=== PATIENT | male | born 1990 | race Caucasian/White ===

== ENCOUNTER 2018-03-21 01:19 | Emergency (ER) | payer OTHER, SELFPAY ==
--- NOTE | 2018-03-21 01:28 | DI.CT.S_ITS ---
PROCEDURE: CT KIDNEY URETER BLADDER (KUB) INDICATIONS: severe Right flank pain TECHNIQUE: Noncontrast 5 mm thick sections acquired from the diaphragms to the symphysis. 5 mm thick coronal and sagittal reformats were then performed. For radiation dose reduction, the following was used: automated exposure control, adjustment of mA and/or kV according to patient size. COMPARISON: None. FINDINGS: Image quality: Excellent. Lung bases: Lung bases are clear. Heart size is normal. Urinary system: No left sided urolithiasis or evidence of urinary obstruction. Mildly obstructive 3 mm mid right ureteral calculus image 45 series 2. There is mild right hydronephrosis. No perinephric stranding. No bladder calculus identified. Other solid organs: Liver is normal in size. Gallbladder negative. Pancreas is normal in contours. Spleen is normal in size. No adrenal nodules. However, there is prominent right adrenal calcification presumably from chronic hemorrhage or granulomatous disease. Peritoneum and bowel: Unenhanced bowel loops demonstrate normal wall thickness and caliber. No free fluid or air. The appendix is normal Nodes and vessels: No retroperitoneal or mesenteric adenopathy by size criteria. Aorta and inferior vena cava are normal in caliber. Abdominal wall: No ventral hernias. Pelvis: No free pelvic fluid. No inguinal hernias or adenopathy. Bones: No suspicious bony lesions. No vertebral body compression fractures. IMPRESSION: Mildly obstructive 3 mm right ureteral calculus as above. Dictated by: Darrel Meraz M.D. on 03/21/2018 at 8:36 Approved by: Darrel Meraz M.D. on 03/21/2018 at 8:40
[2018-03-21 01:30] VITALS: BP 130/87; PULSE 74; RESP 16; TEMP 36.4; O2SAT 100; BMI 29.0
--- NOTE | 2018-03-21 02:06 | ED.MALEGU ---
HPI - Male Genitourinary General Chief complaint: Urogenital-Male Stated complaint: right side back pain, pt thinks kidney stone Time Seen by Provider: 03/21/18 01:28 Source: patient Mode of arrival: ambulatory Limitations: no limitations History of Present Illness HPI Narrative: 27-year-old otherwise healthy male presents with a chief complaint of sudden onset right flank pain that woke him from sleep. He admits to radiation around his right flank. He denies provocation palliation. He states he feels slightly abnormal with urination but denies any distinct dysuria, frequency or urgency. He has had no fever or chills and denies nausea or vomiting. He denies any history of kidney stones. the Onset (ago): minute(s) Duration: intermittent Location: right flank Severity: moderate Quality: aching and sharp Relieving factors: none Exacerbating factors: none Reports denies other symptoms Related Data Sexually active: Yes Previous Rx's Medication Instructions Recorded hydrocodone-acetaminophen 1 tab PO Q4-6H PRN #14 tab 03/21/18 ketorolac 10 mg PO Q6H PRN #14 tab 03/21/18 ondansetron [Zofran ODT] 4 mg PO Q6H PRN #14 tab 03/21/18 tamsulosin [Flomax] 0.4 mg PO DAILY #10 cap 03/21/18 Allergies Allergy/AdvReac Type Severity Reaction Status Date / Time No Known Drug Allergies Allergy Verified 03/21/18 01:30 Review of Systems Review of Systems All systems reviewed & are unremarkable except as noted in HPI and below Constitutional Denies chills, Denies fever(s), Denies lethargy and Denies weakness Eyes Denies change in vision, Denies eye discharge, Denies irritation and Denies loss of vision ENT Ears, Nose, Mouth, and Throat: Denies change in voice, Denies neck pain and Denies sore throat Cardiovascular Denies chest pain, Denies irregular heart rhythm, Denies lightheadedness, Denies palpitations, Denies dyspnea, Denies dyspnea on exertion and Denies orthopnea Respiratory Denies cough, Denies dyspnea, Denies dyspnea on exertion and Denies wheezing Gastrointestinal Gastrointestinal: Denies abdominal pain, Denies change in bowel habits, Denies diarrhea, Denies nausea and Denies vomiting Genitourinary Denies hematuria, Reports flank pain, Reports urinary hesitancy, Denies urinary incontinence and Denies urinary urgency Musculoskeletal Denies neck pain Integumentary/Breasts Denies pruritus, Denies erythema, Denies rash and Denies wounds Neurologic Denies confusion, Denies loss of vision and Denies weakness Psychiatric Denies anxiety, Denies confusion, Denies depression, Denies homicidal ideation and Denies suicidal ideation Endocrine Denies palpitations Hematologic/Lymphatic Denies easy bruising Allergic/Immunologic Denies wheezing [facility] Social History Smoking Status: Never smoker Exam Narrative Exam Narrative: 27-year-old male obviously uncomfortable, clutching his right flank Initial Vital Signs Initial Vital Signs: Vital Signs Temperature 97.5 F L 03/21/18 01:30 Pulse Rate 74 03/21/18 01:30 Respiratory Rate 16 03/21/18 01:30 Blood Pressure 130/87 03/21/18 01:30 Pulse Oximetry 100 03/21/18 01:30 Const General: cooperative, well developed and in distress Nutritional Appearance: well nourished Orientation: alert, awake, oriented x3 and not confused [facility] Head: normocephalic and atraumatic Ears: external ears normal and TM's normal bilaterally Nose: external nose normal and No nasal discharge Face and sinus: sinuses nontender, face symmetric, no sinus tenderness and No dry mucous membranes Mouth: oral mucosae normal and moist mucous membranes Teeth and gingiva: dentition normal Throat: tonsils normal and uvula midline Neck Neck: normal visual inspection, trachea midline, No lymphadenopathy, No midline deformity and No JVD Lymphatic: No lymphedema Resp Effort & Inspection: normal respiratory effort, able to speak in complete sentences, no respiratory distress and no use of accessory muscles Auscultation: clear to auscultation bilaterally, no rales, no rhonchi and no wheezes Cardio Rate: regular rate Rhythm: regular rhythm Heart Sounds: no click, no gallops, no murmurs and no rubs Pulses: normal peripheral pulses GI Inspection: non-distended Palpation: soft, no hepatosplenomegaly, No guarding, No pulsatile mass and No tender Auscultation: normal bowel sounds Back/Spine/Pelvis Back: No CVA tenderness Cervical Spine: cervical ROM normal and No pain with cervical ROM Thoracic/Lumbar Spine: thoracic and lumbar spine normal to inspection Skin General: no rashes or lesions noted, No jaundice and No petechiae Course Orders Ordered: ED Orders 03/21/18 01:28 CT kidney ureter bladder (KUB) Stat 03/21/18 01:41 Urinalysis and Microscopic Stat 03/21/18 02:00 Basic Metabolic Panel Stat Complete Blood Count AUTO DIFF Stat Discontinued Medications Hydrocodone Bitart/Acetaminophen (Vicodin Prepack) 1 bottle MISC SEEINSTR ONE Stop: 03/21/18 02:43 Sodium Chloride (Normal Saline 0.9%) 1,000 mls @ 1,000 mls/hr IV BOLUS ONE Stop: 03/21/18 02:27 Last Admin: 03/21/18 02:08 Dose: 1,000 mls/hr Ketorolac Tromethamine (Toradol) 15 mg IV NOW ONE Stop: 03/21/18 01:29 Last Admin: 03/21/18 02:07 Dose: 15 mg Vital Signs - 8 hr 03/21/18 01:30 Temperature 97.5 F L Pulse Rate 74 Respiratory Rate 16 Blood Pressure 130/87 Pulse Oximetry 100 MDM - Male Genitourinary Differential Diagnosis Likely urinary tract infection, urethritis, epididymitis and acute retention of urine Medical Records Attestation: I reviewed the patient's medical records. Lab Data Result diagrams: 03/21/18 02:00 03/21/18 02:00 Lab Results 03/21/18 03/21/18 03/21/18 Range/Units 01:41 02:00 02:00 WBC 6.8 (4.5-11.0) X10^3/uL RBC 5.15 (4.5-5.9) X10^6/uL Hgb 13.9 (13.5-17.5) g/dL Hct 41.8 (41-53) % MCV 81.2 (80-100) fL MCH 26.9 (26-34) PG MCHC 33.2 (30-36) % RDW 13.4 (11.6-14.8) % Plt Count 235 (150-400) X10^3/uL Neut % (Auto) 64.5 (50-75) % Lymph % (Auto) 23.3 L (25-40) % [place] % (Auto) 11.0 (3-14) % Eos % (Auto) 0.8 L (2-4) % Baso % (Auto) 0.4 (0-2) % Neut # (Auto) 4400 (8876-5533) /uL Sodium 138 (137-145) mmol/L Potassium 4.4 (3.4-5.1) mmol/L Chloride 103 (98-107) mmol/L Carbon Dioxide 24 (22-32) mmol/L BUN 19 (9-20) mg/dL Creatinine 0.70 (0.66-1.25) mg/dL Estimated GFR > 60.0 (>60) mL/min BUN/Creatinine Ratio 27.1 H (6-22) Glucose 107 H (70-100) mg/dL Calcium 9.5 (8.4-10.2) mg/dL Urine Color Yellow Urine Appearance Cloudy Urine pH 5.5 (4.5-8.0) Ur Specific [place] >=1.030 H (1.000-1.035) Urine Protein 1+ H (Negative) Urine Glucose (UA) Negative (Normal) g/dL Urine Ketones Negative (NEGATIVE) Urine Occult Blood 3+ H (Negative) Urine Nitrate Negative (Negative) Urine Bilirubin Negative (NEGATIVE) Urine Urobilinogen 0.2 (0.2) E.U./dL Ur Leukocyte Esterase Negative (NEGATIVE) Urine RBC >100/hpf (0-5/HPF) Urine WBC None seen (0-5/HPF) Urine Bacteria Few (2-10) H (None) Ur Culture Indicated? Cult not indicated Micro UA Comment Not Reportable Imaging Data CT scan - abdomen: Radiologist's impression: 3mm mid ureter stone with mild hydro Discharge Plan Departure Patient Disposition: Home Clinical Impression: Kidney calculi Instructions: DI for Kidney Stones Activity Restrictions/Additional Instructions: *You have been diagnosed with [ Right-sided kidney stone ] *What to do: *Take medications as directed *Follow up with your primary care provider in 2-3 days, call for an appointment. Let them know you were seen in the Emergency Department and that we ask that you be seen in follow up *Return to ER if you should have any new, worsening or concerning symptoms You have been prescribed narcotic medications. While on these medications you cannot drive or operate heavy machinery. Additionally you cannot sign legal documents or perform any duties such as this. Many people get constipated on narcotic medications so it would be advisable to discuss stool softeners with the pharmacist when you pharmacy picking technician your prescription. Please understand that we cannot provide further refills of narcotics or controlled substances through the ED and your pain management will need to be through your Primary Care Provider Prescriptions: New hydrocodone-acetaminophen 5-325 mg tablet 1 tab PO Q4-6H PRN (Reason: pain) Qty: 14 RF: 0 ketorolac 10 mg tablet 10 mg PO Q6H PRN (Reason: pain) Qty: 14 RF: 0 tamsulosin [Flomax] 0.4 mg capsule 0.4 mg PO DAILY Qty: 10 RF: 0 ondansetron [Zofran ODT] 4 mg tablet,disintegrating 4 mg PO Q6H PRN (Reason: nausea and vomiting) Qty: 14 RF: 0 Referrals: Christy Martinez MD [Non-Staff] -
[2018-03-21] MEDS: KETOROLAC 30 MG/ML VIAL 15 MG IV (02:07)
[2018-03-21] MEDS: SODIUM CHLORIDE 0.9% 1,000 ML 1000 ML IV (02:08)
[2018-03-21 02:13] LABS: Add Manual Diff / Slide Review NO; Basophils Percent Auto 0.4 % (0-2); Eosinophils Percent Auto 0.8 % (2-4); Hematocrit 41.8 % (41-53); Hemoglobin 13.9 g/dL (13.5-17.5); Lymphocytes Percent Auto 23.3 % (25-40); Mean Corpuscular HGB Conc 33.2 % (30-36); Mean Corpuscular Hemoglobin 26.9 PG (26-34); Mean Corpuscular Volume 81.2 fL (80-100); Neutrophils Absolute Auto 4400 /uL (3000-5900); Neutrophils Percent Auto 64.5 % (50-75); Platelet Count 235 X10^3/uL (150-400); Red Blood Cell Count 5.15 X10^6/uL (4.5-5.9); Red Cell Distribution Width 13.4 % (11.6-14.8); White Blood Cell Count 6.8 X10^3/uL (4.5-11.0)
[2018-03-21 02:19] LABS: WBC Urine None Seen (0-5/HPF)
[2018-03-21 02:20] LABS: Bilirubin Urine UA NEGATIVE (NEGATIVE); Color Urine UA YELLOW; Glucose Urine UA NEGATIVE (Normal); Ketones Urine UA NEGATIVE (NEGATIVE); Leukocyte Esterase Urine UA NEGATIVE (NEGATIVE); Nitrite Urine UA Negative (Negative); Occult Blood Urine UA 3+ (Negative); Protein Urine UA 1+ (Negative); Specific Gravity Urine UA >=1.030 (1.000-1.035); Urobilinogen Urine UA 0.2 E.U./dL (0.2); pH Urine UA 5.5 (4.5-8.0)
[2018-03-21 02:20] LABS: BUN Creatinine Ratio 27.1 (6-22); Blood Urea Nitrogen 19 mg/dL (9-20); Calcium 9.5 mg/dL (8.4-10.2); Carbon Dioxide 24 mmol/L (22-32); Chloride 103 mmol/L (98-107); Estimated Glomerular Filt Rate > 60.0 mL/min (>60); Glucose 107 mg/dL (70-100); Potassium 4.4 mmol/L (3.4-5.1); Sodium 138 mmol/L (137-145)
[2018-03-21 02:22] LABS: Appearance Urine UA Cloudy
[2018-03-21 02:27] LABS: HEMOLYSIS 58 (0-50)
[2018-03-21 02:45] LABS: RBC Urine >100/HPF (0-5/HPF)
[2018-03-21] MEDS: HYDROCODONE/ACET 5/325 PREPACK 1 BOTTLE MISC (02:45)
[2018-03-21 02:46] LABS: Bacteria Urine Few (2-10); Culture Indicated Urine Cult Not Indicated
[2018-03-21 03:01] VITALS: BP 112/75; PULSE 60; RESP 15; O2SAT 100
== END 2018-03-21 03:03 | disposition home or self-care (01) ==
PROVIDERS: Emergency Provider Emergency Medicine
DX: N20.0 Calculus of kidney (principal)
CPT/HCPCS: 36591; 74176; 80048; 81001; 85025; 96361; 96374; 99283; 99284; J1885